=== PATIENT | male | born 1945 | race African-American/Black ===

== ENCOUNTER 2018-01-01 02:05 | Emergency (ER) | payer MEDICARE, MEDICAID ==
[~2018-01-01] VITALS: Ht 172.7 cm; Wt 63.5 kg
[~2018-01-01 02:05] MED LIST: GABAPENTIN PO; LEVO500T2 PO
[2018-01-01 06:51] LABS: HEMATOCRIT. 39.9 % (42.0-52.0); HEMOGLOBIN. 13.1 g/dL (14.0-18.0); MEAN CORPUSCULAR HEMOGLOBIN 26.1 pg (28.0-32.0); MEAN CORPUSCULAR VOLUME 79.4 fL (80.0-94.0); MEAN PLATELET VOLUME 7.6 fl (7.4-10.4); PLATELET 211 x1000/uL (130-400); RED BLOOD CELL COUNT 5.03 mill/uL (4.7-6.1); RED CELL DISTRIBUTION WIDTH 15.1 % (11.6-14.6)
[2018-01-01 06:56] LABS: CHLORIDE 100 mEq/L (98-107)
[2018-01-01 07:45] VITALS: BP 165/100
[2018-01-01 08:02] LABS: PLATELET ESTIMATE NORMAL
== END 2018-01-01 08:35 | disposition home or self-care (01) ==
LOC: ER 02:05
DX: J18.9 Pneumonia, unspecified organism (principal); J44.9 Chronic obstructive pulmonary disease, unspecified; F12.10 Cannabis abuse, uncomplicated; F17.200 Nicotine dependence, unspecified, uncomplicated
CPT/HCPCS: 36415; 71045; 80053; 83880; 84484; 85025; 93005; 99285

== ENCOUNTER 2019-04-27 03:16 | Emergency (ER) | payer MEDICARE, MEDICAID ==
[~2019-04-27] VITALS: Ht 175.3 cm; Wt 80.0 kg
[2019-04-27] MEDS ORDERED: KETOROLAC 60MG/2ML VIAL IM ONE (03:45)
[2019-04-27 05:19] VITALS: BP 162/78
== END 2019-04-27 05:15 | disposition home or self-care (01) ==
LOC: ER 03:16
DX: M25.511 Pain in right shoulder (principal); M79.18 Myalgia, other site; F17.200 Nicotine dependence, unspecified, uncomplicated
CPT/HCPCS: 73030; 96372; 99283; J1885

== ENCOUNTER 2019-12-20 09:04 | Emergency (ER) | payer MEDICARE, MEDICAID ==
[~2019-12-20] VITALS: Ht 172.7 cm; Wt 82.0 kg
[2019-12-20 10:10] LABS: HEMATOCRIT. 41.3 % (42.0-52.0); HEMOGLOBIN. 13.7 g/dL (14.0-18.0); MEAN CORPUSCULAR HEMOGLOBIN 26.5 pg (28.0-32.0); MEAN CORPUSCULAR VOLUME 79.8 fL (80.0-94.0); MEAN PLATELET VOLUME 7.7 fl (7.4-10.4); PLATELET 190 x1000/uL (130-400); RED BLOOD CELL COUNT 5.18 mill/uL (4.7-6.1); RED CELL DISTRIBUTION WIDTH 15.6 % (11.6-14.6)
[2019-12-20 10:18] LABS: CHLORIDE 109 mEq/L (98-107)
[2019-12-20 10:22] LABS: ETHANOL BLOOD < 10 mg/dL
[2019-12-20 10:34] LABS: CLARITY URINE CLEAR (CLEAR); COLOR URINE YELLOW (YELLOW); KETONES URINE NEGATIVE (NEGATIVE); LEUKOCYTE ESTERASE URINE NEGATIVE (NEGATIVE); NITRITE URINE NEGATIVE (NEGATIVE); OCCULT BLOOD URINE NEGATIVE (NEGATIVE); PROTEIN URINE NEGATIVE (NEGATIVE); SPECIFIC GRAVITY URINE 1.012 (1.005-1.030); UROBILINOGEN URINE 0.2 E.U./dL (0.2-1.0)
[2019-12-20 10:37] LABS: PLATELET ESTIMATE NORMAL
[2019-12-20 10:49] LABS: *AMPHETAMINES SCREEN URINE NEGATIVE (NEGATIVE); *BARBITURATES SCREEN URINE NEGATIVE (NEGATIVE); *BENZODIAZEPINES SCREEN URINE NEGATIVE (NEGATIVE); *COCAINE SCREEN URINE NEGATIVE (NEGATIVE); METHADONE URINE SCREEN NEGATIVE (NEGATIVE)
[2019-12-20 10:50] LABS: CANNABINOID URINE SCREEN NEGATIVE (NEGATIVE); OPIATES URINE SCREEN NEGATIVE (NEGATIVE); PHENCYCLIDINE URINE SCREEN NEGATIVE (NEGATIVE)
[2019-12-20 11:30] VITALS: BP 139/75
== END 2019-12-20 11:57 | disposition home or self-care (01) ==
LOC: ER 09:04
DX: G62.9 Polyneuropathy, unspecified (principal); Z98.890 Other specified postprocedural states
CPT/HCPCS: 36415; 80053; 80305; 80320; 81003; 85025; 99284; G0480

== ENCOUNTER 2020-03-01 22:47 | Emergency (ER) | payer MEDICARE, MEDICAID ==
[~2020-03-01] VITALS: Ht 172.7 cm; Wt 64.0 kg
[2020-03-01] MEDS ORDERED: KETOROLAC 60MG/2ML VIAL IM STA (23:13)
[2020-03-02 00:31] VITALS: BP 140/88
== END 2020-03-02 02:10 | disposition home or self-care (01) ==
LOC: ER 22:47
DX: M19.011 Primary osteoarthritis, right shoulder (principal); M75.31 Calcific tendinitis of right shoulder; Z98.890 Other specified postprocedural states
CPT/HCPCS: 73030; 93005; 96372; 99283; J1885

== ENCOUNTER 2024-02-07 06:05 | Emergency (ER) | payer MEDICARE, MEDICAID ==
[~2024-02-07] VITALS: Ht 172.7 cm; Wt 66.0 kg
[~2024-02-07 06:05] MED LIST changes: -LEVO500T2 PO
[2024-02-07 06:18] VITALS: O2SAT 100
[2024-02-07] MEDS: METOCLOPRAMIDE HCL 10MG TABLET PO ONE (06:59)
[2024-02-07] MEDS: FAMOTIDINE 20MG TABLET PO ONE (07:01)
[2024-02-07] MEDS: GLUCAGON,HUMAN RECOMBINANT 1MG/VIAL IM ONE (07:01)
[2024-02-07] MEDS: MAGNESIUM/ALUMINUM HYDROXIDE/SIMETHICONE 30ML UDC PO ONE (07:01)
[2024-02-07 07:33] LABS: BASOPHILS % 0.8 % (0.0-2.0); DIFFERENTIAL COMMENT 0; EOSINOPHILS % 1.6 % (0.0-5.0); HEMATOCRIT. 40.7 % (42.0-52.0); HEMOGLOBIN. 13.2 g/dL (14.0-18.0); LYMPHOCYTES % 33.4 % (20.0-50.0); MEAN CORPUSCULAR HEMOGLOBIN 24.8 pg (28.0-32.0); MEAN CORPUSCULAR HGB CONC 32.4 g/dL (31.0-37.0); MEAN CORPUSCULAR VOLUME 76.5 fL (80.0-94.0); MEAN PLATELET VOLUME 7.3 fl (7.4-10.4); MONOCYTES % 13.3 % (2.0-8.0); NEUTROPHILS % 50.9 % (40.0-76.0); PLATELET 239 x1000/uL (130-400); RED BLOOD CELL COUNT 5.31 mill/uL (4.7-6.1); RED CELL DISTRIBUTION WIDTH 15.6 % (11.6-14.6); WHITE BLOOD COUNT 7.2 x1000/uL (4.5-11.0)
[2024-02-07 07:42] LABS: CHLORIDE 110 mEq/L (98-107); POTASSIUM 4.2 mEq/L (3.5-5.1); SODIUM 141 mEq/L (136-145)
[2024-02-07 07:43] LABS: CARBON DIOXIDE 25 mEq/L (21-32)
[2024-02-07 07:44] LABS: CALCIUM 9.9 mg/dL (8.7-10.4)
[2024-02-07 07:48] LABS: CREATININE 1.1 mg/dL (0.6-1.3); GLUCOSE 113 mg/dL (70-105); TROPONIN I HIGH SENSITIVITY 14 ng/L (3.0-53)
[2024-02-07 07:49] LABS: UREA NITROGEN BLOOD 12 mg/dL (9-23)
[2024-02-07 07:50] LABS: ALANINE AMINOTRANSFERASE 15 IU/L (10-49); ALBUMIN 4.9 g/dL (3.2-4.8); ASPARTATE AMINOTRANSFERASE 24 IU/L (<34)
[2024-02-07 07:51] LABS: BILIRUBIN DIRECT 0.1 mg/dL (<=3.0); BILIRUBIN TOTAL 0.3 mg/dL (0.1-1.0); PROTEIN TOTAL 7.8 g/dL (6.0-8.3)
[2024-02-07 08:18] LABS: PARTIAL THROMBOPLASTIN TIME < 21.0 sec (23.4-31.0); PROTHROMBIN TIME 11.4 sec (9.6-11.0)
[2024-02-07] MEDS ORDERED: FAMO-135 MT (09:59)
[2024-02-07 10:30] VITALS: BP 120/67; PULSE 62; RESP 16; TEMP 98
== END 2024-02-07 10:42 | disposition home or self-care (01) ==
LOC: ER 06:30
DX: T18.128A Food in esophagus causing other injury, initial encounter (principal); X58.XXXA Exposure to other specified factors, initial encounter; Y93.89 Activity, other specified; Y92.89 Other specified places as the place of occurrence of the external cause; Y99.8 Other external cause status
CPT/HCPCS: 99285; 71045; 80076; 80048; 82962; 83690; 85025; 85610; 85730; 84484; 36415; 93005; 96372; J1610; J8597